=== PATIENT | male | born 1960 ===

== ENCOUNTER 2020-04-01 09:20 | Outpatient (REF) | payer OTHER, SELFPAY | END 2020-04-01 09:21 | disposition home or self-care (01) | LOC: HO.HOSX 09:20 | PROVIDERS: Visit Provider Orthopaedic Surgery | DX: Z13.89 Encounter for screening for other disorder (principal) ==

== ENCOUNTER → 2020-04-15 09:56 | Outpatient (BNVA) | payer OTHER, SELFPAY | PROVIDERS: PCP Nurse Practitioner Family; Visit Provider Orthopaedic Surgery ==

== ENCOUNTER 2020-04-18 08:54 | Outpatient (REF) | payer OTHER, SELFPAY ==
--- NOTE | 2020-04-18 09:20 | XR_ITS ---
EXAMINATION: XR PELVIS XR HIP, LEFT XR HIP, RIGHT CLINICAL INFORMATION: Pain COMPARISON: 11/27/2019 TECHNIQUE: AP view of the pelvis. 2 views of the left hip. 2 views of the right hip. 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 Positioning of the hardware is unchanged, with bilateral acetabular thinning. Overall superior positioning of the hardware within the acetabulum with protrusio appearance. This is unchanged. No periprosthetic fracture. Spurring seen along the region of the lesser trochanter at both femurs. The sacroiliac joints are symmetric. Degenerative changes at the lower lumbar spine. The bowel gas pattern is unremarkable. 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 Similar appearance of remodeling of the acetabula with unchanged positioning of the hardware. No acute abnormality.
--- NOTE | 2020-04-18 09:20 | XR_ITS ---
EXAMINATION: XR PELVIS XR HIP, LEFT XR HIP, RIGHT CLINICAL INFORMATION: Pain COMPARISON: 11/27/2019 TECHNIQUE: AP view of the pelvis. 2 views of the left hip. 2 views of the right hip. 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 Positioning of the hardware is unchanged, with bilateral acetabular thinning. Overall superior positioning of the hardware within the acetabulum with protrusio appearance. This is unchanged. No periprosthetic fracture. Spurring seen along the region of the lesser trochanter at both femurs. The sacroiliac joints are symmetric. Degenerative changes at the lower lumbar spine. The bowel gas pattern is unremarkable. 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 Similar appearance of remodeling of the acetabula with unchanged positioning of the hardware. No acute abnormality.
--- NOTE | 2020-04-18 09:20 | XR_ITS ---
EXAMINATION: XR PELVIS XR HIP, LEFT XR HIP, RIGHT CLINICAL INFORMATION: Pain COMPARISON: 11/27/2019 TECHNIQUE: AP view of the pelvis. 2 views of the left hip. 2 views of the right hip. 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 Positioning of the hardware is unchanged, with bilateral acetabular thinning. Overall superior positioning of the hardware within the acetabulum with protrusio appearance. This is unchanged. No periprosthetic fracture. Spurring seen along the region of the lesser trochanter at both femurs. The sacroiliac joints are symmetric. Degenerative changes at the lower lumbar spine. The bowel gas pattern is unremarkable. 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 Similar appearance of remodeling of the acetabula with unchanged positioning of the hardware. No acute abnormality.
== END 2020-04-18 08:55 | disposition home or self-care (01) ==
LOC: HO.HOSX 08:54
PROVIDERS: Visit Provider Orthopaedic Surgery
DX: T84.030A Mechanical loosening of internal right hip prosthetic joint, initial encounter (principal); T84.031A Mechanical loosening of internal left hip prosthetic joint, initial encounter
CPT/HCPCS: 72170; 73502

== ENCOUNTER → 2020-05-03 13:06 | Outpatient (BNVA) | payer OTHER, SELFPAY | PROVIDERS: Visit Provider Nurse Practitioner Family ==

== ENCOUNTER → 2020-05-27 13:30 | Outpatient (BNVA) | payer OTHER, SELFPAY | PROVIDERS: PCP Nurse Practitioner Family; Visit Provider Nurse Practitioner Family ==